=== PATIENT | male | born 1985 | race Caucasian/White ===

== ENCOUNTER 2020-04-18 17:54 | Emergency (ER) | payer OTHER ==
[2020-04-18 18:23] LABS: CHLORIDE,CL 99 mmol/L (98-107); SODIUM,NA 137 mmol/L (136-145)
[2020-04-18 18:25] LABS: ANION GAP 15.9 mmol/L (10-20)
[2020-04-18] MEDS ORDERED: Lactated Ringers 1,000 ML IV ONE (18:35)
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
[2020-04-18 19:00] LABS: BARBITURATE SCREEN,URINE NEGATIVE (NEGATIVE); BENZODIAZEPINES SCREEN,URINE NEGATIVE (NEGATIVE); EDDP,URINE SCREEN NEGATIVE (NEGATIVE); METHAMPHETAMINE SCREEN, URINE NEGATIVE (NEGATIVE); TCA SCREEN,URINE NEGATIVE (NEGATIVE); THC SCREEN,URINE 50 NG/ML NEGATIVE (NEGATIVE)
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
== END 2020-04-18 20:10 | disposition home or self-care (01) ==
LOC: VM.ED 17:54
DX: S50.01XA Contusion of right elbow, initial encounter (principal); S60.222A Contusion of left hand, initial encounter; R55 Syncope and collapse; V89.2XXA Person injured in unspecified motor-vehicle accident, traffic, initial encounter
CPT/HCPCS: 36415; 73080-RT; 73130-LT; 80053; 80305-QW; 80307; 81001; 83605; 84484; 85025; 87086; 93005; 96360; 99284-25; J7120